=== PATIENT | male | born 1990 ===

== ENCOUNTER 2017-05-11 20:49 | Emergency (ER) | payer SELFPAY ==
[2017-05-11 21:56] VITALS: BP 140/99; PULSE 57; RESP 16; TEMP 98.1; O2SAT 100
--- NOTE | 2017-05-11 23:00 | ED PDOC ---
HPI: General Adult Time Seen by Provider: 05/11/17 22:04 Chief Complaint (Nursing): GI Problem Chief Complaint (Provider): GI Problem History Per: Patient History/Exam Limitations: no limitations Onset/Duration Of Symptoms: Days (x 10) Current Symptoms Are (Timing): Still Present Additional Complaint(s): Aleks is a 27 year old male who presents to the emergency department complaining of bright red per rectal bleeding for 10 days. Patient states he saw Dr. Cooley (GI) and is scheduled to have colonscopy in May. Patient reports assocaited lightheadedness, but no vomiting, fever, cough, or sob. Denies blood clots, constipation or hard stool. Normal appeptite. PMD: Darrell Cooley Past Medical History Reviewed: Historical Data, Nursing Documentation, Vital Signs Vital Signs: Last Vital Signs Temp 98.1 F 05/11/17 21:53 Pulse 57 L 05/11/17 21:53 Resp 16 05/11/17 21:53 BP 140/99 H 05/11/17 21:53 Pulse Ox 100 05/11/17 23:01 - Medical History PMH: No Chronic Diseases - Surgical History Other surgeries: Biopsy- right humerus - Family History Family History: States: Unknown Family Hx - Social History Current smoker - smoking cessation education provided: No Alcohol: None Drugs: Denies - Allergies Allergies/Adverse Reactions: Allergies Allergy/AdvReac Type Severity Reaction Status Date / Time No Known Allergies Allergy Verified 05/11/17 21:53 Review of Systems ROS Statement: Except As Marked, All Systems Reviewed And Found Negative Constitutional: Negative for: Fever Cardiovascular: Positive for: Light Headedness Respiratory: Negative for: Cough, Shortness of Breath Gastrointestinal: Positive for: Other (bright red per rectal bleeding ). Negative for: Vomiting, Constipation Physical Exam - Reviewed Nursing Documentation Reviewed: Yes Vital Signs Reviewed: Yes - Physical Exam Appears: Positive for: Non-toxic Head Exam: Positive for: ATRAUMATIC, NORMAL INSPECTION, NORMOCEPHALIC Skin: Positive for: Normal Color, Warm, Dry Eye Exam: Positive for: Normal appearance, EOMI, PERRL ENT: Positive for: Normal ENT Inspection Neck: Positive for: Normal Cardiovascular/Chest: Positive for: Regular Rate, Rhythm Respiratory: Positive for: Normal Breath Sounds. Negative for: Respiratory Distress Gastrointestinal/Abdominal: Positive for: Normal Exam Back: Positive for: Normal Inspection Extremity: Positive for: Normal ROM. Negative for: Deformity Neurologic/Psych: Positive for: Alert, spinneret cleaner II-XII, Oriented (x 3). Negative for : Motor/Sensory Deficits - Laboratory Results Result Diagrams: 05/11/17 23:07 05/11/17 23:07 - ECG O2 Sat by Pulse Oximetry: 100 (RA) Pulse Ox Interpretation: Normal Medical Decision Making Medical Decision Making: Time: 22:19 Impression: 27 year old male with bright red per rectal bleeding Plan: - ABO/RH Type Stat - Type and Screen Stat - EKG - CMP - Lipase Stat - CBC - Urinalysis 2345 Labs reviewed: no clinically significant abnormalities. Case discussed with Dr. Cooley, who asked for patient to be discharged and call his office tomorrow. States that he will schedule a colonoscopy sooner than his current May appointment. Patient is agreeable to plan. Upon discharge. patient is asymptomatic and feels well. Dx: hematochezia Condition: stable Scribe Attestation: Documented by Kelvin Brand, acting as a scribe for Dane Polanco MD Provider Scribe Attestation: All medical record entries made by the Scribe were at my direction and personally dictated by me. I have reviewed the chart and agree that the record accurately reflects my personal performance of the history, physical exam, medical decision making, and the department course for this patient. I have also personally directed, reviewed, and agree with the discharge instructions and disposition. Disposition - Clinical Impression Clinical Impression: Hematochezia Discussed With DrSean: Darrell Cooley Doctor Will See Patient In The: Office Counseled Patient/Family Regarding: Diagnosis, Need For Followup - Disposition Disposition: Routine/Home Disposition Time: 23:45 Condition: STABLE Instructions: Bloody Stools Forms: [employer] ([place]ican)
[2017-05-11 23:10] LABS: BASO % 0.5 % (0.0-2.0); EOS # 0.2 K/uL (0.0-0.7); EOS % 2.3 % (0.0-4.0); HEMOGLOBIN 15.1 g/dL (12.0-18.0); LYMPH # 3.4 K/uL (1.0-4.3); LYMPH % 45.8 % (20.0-40.0); MEAN CORPUSCULAR HEMOGLOBIN 31.3 pg (27.0-31.0); MEAN CORPUSCULAR HGB CONC 34.7 g/dL (33.0-37.0); MEAN PLATELET VOLUME 7.2 fl (7.2-11.7); MONO # 0.6 K/uL (0.0-0.8); NEUT # 3.2 K/uL (1.8-7.0); NEUT % 43.4 % (50.0-75.0); NRBC % 0.1 % (0.0-0.0); RBC 4.84 Mil/uL (4.40-5.90); RED CELL DISTRIBUTION WIDTH 13.2 % (11.5-14.5); WHITE BLOOD COUNT 7.3 K/uL (4.8-10.8)
[2017-05-11 23:21] LABS: ALB/GLOB RATIO 1.3 (1.0-2.1); ALBUMIN 4.7 g/dL (3.5-5.0); ALT/SGPT 53 U/L (21-72); AST/SGOT 30 U/L (17-59); BLOOD UREA NITROGEN 14 mg/dl (9-20); CALCIUM 9.7 mg/dL (8.4-10.2); GFR AFRICAN-AMERICAN > 60; GFR NON-AFRICAN AMERICAN > 60; LIPASE 141 U/L (23-300)
== END 2017-05-12 00:05 | disposition home or self-care (01) ==
LOC: H.ER 20:49
DX: K92.1 Melena (principal)

== ENCOUNTER 2017-05-18 07:26 | Day surgery (SDC) | payer OTHER ==
[2017-05-18] MEDS ORDERED: Lactated Ringer's 1,000 ML IV ONE (07:39)
[2017-05-18 07:56] VITALS: TEMP 97.6
[2017-05-18] MEDS ORDERED: Midazolam 2 MG/2 ML VIAL ONE (08:16)
[2017-05-18] MEDS ORDERED: Propofol 10 mg/ml Inj (20 ML) ONE (08:16)
[2017-05-18] MEDS ORDERED: Lidocaine PF 2% (5 ml) Inj (For Cardiac Arrhy) IV ONE (08:17)
[2017-05-18 09:00] VITALS: BP 129/80; PULSE 69; RESP 15; O2SAT 100
== END 2017-05-18 10:15 | disposition home or self-care (01) ==
LOC: H.ENDO 07:26
PROVIDERS: ATTEND Internal Medicine Gastroenterology
DX: K92.1 Melena (principal); K21.9 Gastro-esophageal reflux disease without esophagitis
CPT/HCPCS: 45378; J2001; J2250; J2704; J7120